=== PATIENT | female | born 1950 | race Caucasian/White ===

== ENCOUNTER → 2017-08-10 | Outpatient (CLI) | payer OTHER ==
--- NOTE | 2017-08-10 14:26 | MAMMOGRAPHY REPORT ---
BILATERAL DIGITAL SCREENING MAMMOGRAM TOMOSYNTHESIS WITH CAD: 08/10/2017 CLINICAL HISTORY: Routine screening. Patient has no complaints. TECHNIQUE: Breast tomosynthesis in addition to standard 2D mammography was performed. Current study was also evaluated with a Computer Aided Detection (CAD) system. COMPARISON: Comparison is made to exams dated: 06/30/2016 mammogram - [facility], 1 09/09/2014 mammogram, and 07/15/2013 mammogram. BREAST COMPOSITION: The tissue of both breasts is extremely dense, which lowers the sensitivity of m ammography. FINDINGS: No suspicious masses, calcifications, or areas of architectural distortion are noted in ei ther breast. There has been no significant interval change compared to prior exams. Scattered bilater al benign-appearing calcifications are not significantly changed. IMPRESSION: ACR BI-RADS CATEGORY 2: BENIGN There is no mammographic evidence of malignancy. A 1 year screening mammogram is recommended. The pa tient will receive written notification of the results. Approximately 10% of breast cancers are not detected with mammography. A negative mammographic report should not delay biopsy if a clinically suggestive mass is present. Sravanthi Mason M.D. /:08/10/2017 14:17:07 Commissions Specialist: Ana ELDRIDGE,R, M, [facility] letter sent: Normal 1/2 BI-RADS Code: ACR BI-RADS Category 2: Benign
== END | disposition home or self-care (01) ==
LOC: C.MAMM 13:36
PROVIDERS: ATTEND Preventive Medicine Public Health & General Preventive Medicine
DX: Z12.31 Encounter for screening mammogram for malignant neoplasm of breast (principal)

== ENCOUNTER → 2017-11-27 | Outpatient (CLI) | payer OTHER ==
--- NOTE | 2017-11-27 16:00 | DIAGNOSTIC IMAGING REPORT ---
THYROID ULTRASOUND CLINICAL HISTORY: LEFT THYROID NODULE COMPARISON STUDY: Ultrasound guided fine needle aspiration of left lobe nodule June 20, 2016. TECHNIQUE: Sonography of the thyroid gland was performed. FINDINGS: The right thyroid lobe measures 5 x 1.5 x 1.3 cm and the left lobe measures 4.5 x 1.4 x 1.2 cm. Several subcentimeter thyroid nodules are again noted. Note is made of a 0.5 cm calcified nodule within the lower pole of the left thyroid lobe which is stable or slightly decreased in size since exam of June 20, 2016. The largest right lobe nodule measures 4 mm. IMPRESSION: Several subcentimeter thyroid nodules, including a 5 mm calcified left lobe nodule which is stable or decreased in size since exam June 20, 2016. None of these nodules meet criteria for biopsy at this time. Electronically signed by: Shahab Rubin M.D. 11/27/2017 3:58 PM Dictated Date/Time: 11/27/2017 3:55 PM
== END | disposition home or self-care (01) ==
LOC: C.ULTRBC 15:04
PROVIDERS: ATTEND Internal Medicine
DX: E04.1 Nontoxic single thyroid nodule (principal)